=== PATIENT | male | born 1995 | race Hispanic/Latino ===

== ENCOUNTER 2018-08-05 01:21 | Emergency (ER) | payer OTHER ==
[2018-08-05 01:42] VITALS: RESP 18; O2SAT 98
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
[2018-08-05 05:10] VITALS: BP 124/76; PULSE 94; TEMP 98.3
== END 2018-08-05 05:14 | disposition home or self-care (01) ==
LOC: H.ER 01:21
DX: F12.90 Cannabis use, unspecified, uncomplicated (principal); Z00.8 Encounter for other general examination